=== PATIENT | female | born 1955 | race Caucasian/White ===

== ENCOUNTER → 2017-01-12 | Outpatient (CLI) | payer BC, OTHER | LOC: WI 13:46 | PROVIDERS: ATTEND Nurse Practitioner Family | DX: M81.0 Age-related osteoporosis without current pathological fracture (principal) | CPT/HCPCS: 77080 ==

== ENCOUNTER 2019-01-13 11:13 | Observation (INO) | payer MEDICARE, BC, OTHER ==
--- NOTE | 2019-01-13 13:21 | ER Document Report ---
ED Medical Screen (RME) - General Chief Complaint: Leg Swelling Stated Complaint: LEFT LEG PAIN Time Seen by Provider: 01/13/19 13:19 Primary Care Provider: JAMIE LINDQUIST NP [Primary Care Provider] - Follow up as needed Notes: Patient is a 63-year-old female presents to the emergency department for generalized left calf pain and swelling. Patient states she is noticed the swelling and pain for the last 24 hours. States she went to her primary care provider who referred her to the emergency room for an ultrasound to rule out a blood clot. Patient states she has never had a blood clot before. Patient's denying any chest pain, shortness of breath, abdominal pain. States only has pain in the left calf more so when she dorsiflex her left foot. GENERAL: Alert, interacts well. No acute distress. EXTREMITIES: Moves all 4 extremities spontaneously. normal radial and dorsalis pedis pulses bilaterally. Slight swelling noted to left lower extremity. Patient does have pain upon palpation left calf also with plantar and dorsiflexion of the left foot. NEUROLOGICAL: Alert and oriented x3. Normal speech. SKIN: Warm, dry, normal turgor. No rashes or lesions noted. I have greeted and performed a rapid initial assessment of this patient. A comprehensive ED assessment and evaluation of the patient, analysis of test results and completion of the medical decision making process will be conducted by additional ED providers. TRAVEL OUTSIDE OF THE [place] IN LAST 30 DAYS: No - Related Data Allergies/Adverse Reactions: propoxyphene [From Darvon] Allergy (Verified 01/13/19 11:19) Physical Exam - Vital signs Vitals: Temp Pulse Resp BP Pulse Ox 98.3 F 95 16 133/73 H 98 01/13/19 11:19 01/13/19 11:19 01/13/19 11:19 01/13/19 11:19 01/13/19 11:19 Course - Vital Signs Vital signs: Temp Pulse Resp BP Pulse Ox 98.3 F 95 16 133/73 H 98 01/13/19 11:19 01/13/19 11:19 01/13/19 11:19 01/13/19 11:19 01/13/19 11:19 Doctor's Discharge - Discharge Referrals: JAMIE LINDQUIST NP [Primary Care Provider] - Follow up as needed
--- NOTE | 2019-01-13 15:54 | ER Document Report ---
ED Extremity Problem, Lower - General Chief Complaint: Leg Swelling Stated Complaint: LEFT LEG PAIN Time Seen by Provider: 01/13/19 13:19 Notes: Patient says that she was walking about 4 days ago it started noting a pain in the posterior aspect of her left lower leg, calf region. She felt that it was "red, and hot". All of her symptoms have been going on for 4 days so she went to a local clinic who referred her here to make sure she does not have a blood clot in her leg. She has never had clots previously. Patient says she is noticed some tightness in the front of her chest for the past 24 hours. Denies difficulty breathing. Has not had any fevers. Patient is on multiple medications for mental conditions such as anxiety, depres donya, peripheral neuropathy, sleep disorder. Trigeminal neuralgia. TRAVEL OUTSIDE OF THE [place] IN LAST 30 DAYS: No - Related Data Allergies/Adverse Reactions: propoxyphene [From Darvon] Allergy (Verified 01/13/19 11:19) Past Medical History - Social History Smoking Status: Never Smoker Family History: Reviewed & Not Pertinent Patient has suicidal ideation: No Patient has homicidal ideation: No Pulmonary Medical History: Reports: Hx Asthma Neurological Medical History: Reports: Hx Migraine Endocrine Medical History: Denies: Hx Diabetes Mellitus Type 1, Hx Diabetes Mellitus Type 2 Past Surgical History: Reports: Hx Hysterectomy, Hx Tonsillectomy, Other - Bladder tuck Review of Systems - Review of Systems Notes: REVIEW OF SYSTEMS: CONSTITUTIONAL : Denies fever. EENT: Denies eye, ear, nose or mouth or throat pain or other symptoms. CARDIOVASCULAR: Denies chest pain. Painful swelling of left lower leg. See HPI. RESPIRATORY: Denies cough, chest congestion, or shortness of breath. GASTROINTESTINAL: Denies abdominal pain or nausea, vomiting, or diarrhea. GENITOURINARY: Denies difficulty or painful urinating, urinary frequency, blood in urine. MUSCULOSKELETAL: Denies back or neck pain. Denies joint pain or swelling. SKIN: Denies rash or skin lesions. NEUROLOGICAL: Denies LOC or altered mental status. Denies headache. Denies sensory loss or motor deficits. ALL OTHER SYSTEMS REVIEWED AND NEGATIVE. Physical Exam - Vital signs Vitals: Temp Pulse Resp BP Pulse Ox 98.3 F 95 16 133/73 H 98 01/13/19 11:19 01/13/19 11:19 01/13/19 11:19 01/13/19 11:19 01/13/19 11:19 Interpretation: Normal. No: Hypotensive, Hypertensive, Tachycardic, Hypoxic Notes: PHYSICAL EXAMINATION: GENERAL: Well-appearing, in no acute distress. HEAD: Atraumatic, normocephalic. EYES: Pupils equal round and reactive to light, extraocular movements intact. ENT: oropharynx clear without exudates. Moist mucous membranes. NECK: Normal range of motion, supple. LUNGS: Breath sounds clear and equal bilaterally. HEART: Regular rate and rhythm without murmurs. ABDOMEN: Soft, nontender. No guarding or rebound. No masses. BACK: No tenderness throughout entire back. EXTREMITIES: Left lower leg appears to be slightly more swollen than the right lower leg. There is pain in the posterior left calf when dorsiflexing the foot. Otherwise, normal range of motion without pain of other extremities. NEUROLOGICAL: Normal speech, normal gait. Normal sensory, motor, and reflex exams. Awake, alert, and oriented x3. Cranial nerves normal. PSYCH: Normal mood, normal affect. SKIN: Warm, dry, no rashes. Course - Re-evaluation Re-evalutation: 01/13/19 15:54 Results of venous Doppler discussed with hospitalist in charge today and he wishes that the patient get a CTA and he will evaluate for possible outpatient care. CTA of the chest is negative. - Vital Signs Vital signs: Temp Pulse Resp BP Pulse Ox 98.3 F 95 16 133/73 H 98 01/13/19 11:19 01/13/19 11:19 01/13/19 11:19 01/13/19 11:19 01/13/19 11:19 - Laboratory Result Diagrams: 01/13/19 15:18 01/13/19 15:18 Laboratory results interpreted by me: 01/13/19 15:18 Chloride 108 H Carbon Dioxide 21 L Creatinine 1.32 H Est GFR ( Amer) 49 L Est GFR (Non-Af Amer) 41 L ALT 8 L - Diagnostic Test Radiology reviewed: Image reviewed, Reports reviewed - Patient's venous Doppler showed extensive clot in the left femoral vein and into the left lower leg. CTA of the chest was negative. - EKG Interpretation by Ct EKG shows normal: Sinus rhythm Rate: Normal Rhythm: NSR Additional EKG results interpreted by me: 01/13/19 18:13 EKG shows nonspecific T wave changes in the inferior leads. Discharge - Discharge Clinical Impression: DVT (deep venous thrombosis) Condition: Stable Disposition: ADMITTED OBSERVATION Admitting Provider: Hospitalist Unit Admitted: Telemetry
[2019-01-13 16:13] LABS: ABSOLUTE EOSINOPHILS # (AUTO) 0.2 10^3/uL (0.0-0.6); ABSOLUTE LYMPHOCYTES (AUTO) 1.5 10^3/uL (0.5-4.7); ABSOLUTE MONOCYTES (AUTO) 0.8 10^3/uL (0.1-1.4); ABSOLUTE NEUT (AUTO) 5.4 10^3/uL (1.7-8.2); BASOPHILS % (AUTO) 0.5 % (0-2); EOSINOPHILS % (AUTO) 2.7 % (0-6); HEMOGLOBIN 13.4 g/dL (12.0-15.5); LYMPHOCYTES % (AUTO) 19.3 % (13-45); MEAN CORPUSCULAR HEMOGLOBIN 31.4 pg (27.0-33.4); MEAN CORPUSCULAR HGB CONC 35.1 g/dL (32.0-36.0); MEAN CORPUSCULAR VOLUME 89 fl (80-97); MONOCYTES % (AUTO) 9.5 % (3-13); PLATELET COUNT 259 10^3/uL (150-450); RED BLOOD COUNT 4.25 10^6/uL (3.72-5.28); RED CELL DISTRIBUTION WIDTH 13.4 % (11.5-14.0); TOTAL CELLS COUNTED % (AUTO) 100 %; WHITE BLOOD COUNT 7.9 10^3/uL (4.0-10.5)
[2019-01-13 16:28] LABS: ALANINE AMINOTRANSFERASE 8 U/L (9-52); ALBUMIN 4.3 g/dL (3.5-5.0); ALKALINE PHOSPHATASE 68 U/L (38-126); ANION GAP 12 (5-19); ASPARTATE AMINO TRANSFERASE 17 U/L (14-36); BILIRUBIN,DIRECT 0.3 mg/dL (0.0-0.4); BILIRUBIN,TOTAL 0.5 mg/dL (0.2-1.3); BLOOD UREA NITROGEN 14 mg/dL (7-20); CALCIUM 9.4 mg/dL (8.4-10.2); CARBON DIOXIDE 21 mmol/L (22-30); CHLORIDE 108 mmol/L (98-107); GLUCOSE 94 mg/dL (75-110); POTASSIUM 3.8 mmol/L (3.6-5.0); SODIUM 141.4 mmol/L (137-145)
--- NOTE | 2019-01-13 17:43 | XCELERA REPORT ---
[address] [id number] Lower Extremity Venous Evaluation Procedure: Color flow and duplex imaging of the veins of the left lower extremity as well as the right Common Femoral vein. Right Sided Venous Evaluation The right common femoral vein is fully compressible. Spontaneous and phasic flow is present in the right common femoral vein. Left Sided Venous Evaluation Abnormal vessel filling, enlarged vein, no compression or Colour flow, echo poor from the Common Femoral to the infrageniculate veins. Critical Findings Called in to the ER at about 1500. Interpretation Summary Extensive acute Deep Venous thrombosis in the left lower extremity. Name: DALE SEVILLA Age: 63 yrs Gender: Female : 1955 Patient Status: Emergency Patient Location: ER Study Date: 01/13/2019 02:33 PM Reason For Study: left Ordering Physician: LORETO TRINIDAD Performed By: Juan Mcclure : LORETO TRINIDAD > López Rodriguez
--- NOTE | 2019-01-13 17:55 | RADIOLOGY REPORT (SQ) ---
EXAM DESCRIPTION: CTA CHEST COMPLETED DATE/TIME: 01/13/2019 5:39 pm REASON FOR STUDY: Positive DVT, tightness of chest COMPARISON: 01/31/2012 TECHNIQUE: CT scan of the chest performed using helical scanning technique with dynamic intravenous contrast injection. Images reviewed with lung, soft tissue and bone windows. Reconstructed coronal and sagittal MPR images reviewed. Additional 3 dimensional post-processing performed to develop Maximal Intensity Projection images (MS P). All images stored on PACS. All CT scanners at this facility use dose modulation, iterative reconstruction, and/or weight based d osing when appropriate to reduce radiation dose to as low as reasonably achievable (ALARA). [facility]: Dose Right [facility]: CareDose [facility]: Dose Right [facility]: Teradose 4D [facility]: 7fgame CONTRAST TYPE AND DOSE: contrast/concentration: Isovue 350.00 mg/ml; Total Contrast Delivered: 68.0 ml; Total Saline Delivered: 108.0 ml Contrast bolus optimized for the pulmonary arteries. Not diagnostic for the aorta. RENAL FUNCTION: BUN 14 creatinine 1.32 RADIATION DOSE: CT Rad equipment meets quality standard of care and radiation dose reduction techniq ues were employed. CTDIvol: 5.0 - 44.6 mGy. DLP: 640 mGy-cm. . LIMITATIONS: None. FINDINGS: LUNGS AND PLEURA: No masses, infiltrates, or pneumothorax. No pleural effusions or pleura l calcifications. AORTA AND GREAT VESSELS: No aneurysm. Contrast bolus not optimized for the aorta. HEART: No pericardial effusion. No significant coronary artery calcifications. PULMONARY ARTERIES: No emboli visualized in the main pulmonary arteries or the segmental branches. HILAR AND MEDIASTINAL STRUCTURES: No identified masses or abnormal nodes. HARDWARE: None in the chest. UPPER ABDOMEN: Similar right adrenal adenoma. Limited exam. THYROID AND OTHER SOFT TISSUES: No masses. No adenopathy. BONES: No acute finding. 3D MIPS: Confirm above findings. OTHER: No other significant finding. IMPRESSION: No emboli visualized in the main pulmonary arteries or the segmental branches. COMMENT: Quality ID # [id number]: Final reports with documentation of one or more dose reduction techniques (e.g., Automated exposure control, adjustment of the mA and/or kV according to patient size, use of iterative reconstruction technique) TECHNICAL DOCUMENTATION: JOB ID: [id number] [place]-72 2010 [employer]- All Rights Reserved Reading location - IP/workstation name: [employer]
[2019-01-13] MEDS ORDERED: OXYCODONE-ACETAMINOPHEN 5-325 MG TABLET PO PRN (18:35)
[2019-01-13] MEDS ORDERED: ONDANSETRON HCL INJ/PF 4 MG/2 ML SDV IV PRN (18:35)
--- NOTE | 2019-01-13 18:55 | PDOC H&P ---
History of Present Illness Admission Date/PCP: 01/13/19 18:30 Patient complains of: Left lower leg pain swelling. History of Present Illness: DALE SEVILLA is a 63 year old female with h/o hyperlopedemia,anxiety,depression,lt upper extremity DVT 5 yrs ago,,allergic rhinitis,migraines,peripheral vascular disease,sleep problems came to the ER with complaints of left lower leg swelling pain redness for the last 4-5 days. She had an onset. Denies any injury. Denies any shortness of breath except for chest tightness. Denies any fever denies any cough cold. In the emergency room DVT studies was done found to have extensive left lower leg DVT. CT of the chest was done which was negative for PE. Medical consult was called for admission. Past Medical History Cardiac Medical History: Reports: Hyperlipidema, Peripheral Vascular Disease Pulmonary Medical History: Reports: Asthma Neurological Medical History: Reports: Migraine Endocrine Medical History: Denies: Diabetes Mellitus Type 1, Diabetes Mellitus Type 2 Past Surgical History Past Surgical History: Reports: Hysterectomy, Tonsillectomy, Other - Bladder tuck Social History Smoking Status: Never Smoker Frequency of Alcohol Use: Rare Hx Recreational Drug Use: No Drugs: None - Advance Directive Resuscitation Status: Do Not Resuscitate Family History Family History: Reviewed & Not Pertinent Parental Family History Reviewed: Yes - father prostate cancer/m-esophageal cancer Children Family History Reviewed: Yes Sibling(s) Family History Reviewed.: Yes Medication/Allergy Allergies/Adverse Reactions: propoxyphene [From Darvon] Allergy (Verified 01/13/19 11:19) Review of Systems Constitutional: ABSENT: fever(s), headache(s) Eyes: ABSENT: visual disturbances Cardiovascular: ABSENT: chest pain, dyspnea on exertion, edema, orthropnea, palpitations Gastrointestinal: ABSENT: abdominal pain, constipation, diarrhea, hematemesis, hematochezia, nausea, vomiting Musculoskeletal: ABSENT: joint swelling Neurological: ABSENT: abnormal gait, abnormal speech, confusion, dizziness, focal weakness, syncope Psychiatric: ABSENT: anxiety, depression, homidical ideation, suicidal ideation Hematologic/Lymphatic: ABSENT: easy bleeding, easy bruising Physical Exam Vital Signs: Temp Pulse Resp BP Pulse Ox 98.3 F 95 16 133/73 H 98 01/13/19 11:19 01/13/19 11:19 01/13/19 11:19 01/13/19 11:19 01/13/19 11:19 Intake & Output 01/12/19 01/13/19 01/14/19 06:59 06:59 06:59 Weight 67.2 kg General appearance: PRESENT: no acute distress Head exam: PRESENT: atraumatic Eye exam: PRESENT: PERRLA Teeth exam: PRESENT: poor dentation Neck exam: ABSENT: carotid bruit, JVD, lymphadenopathy, thyromegaly Respiratory exam: PRESENT: decreased breath sounds Cardiovascular exam: PRESENT: tachycardia GI/Abdominal exam: PRESENT: normal bowel sounds, soft. ABSENT: distended, guarding, mass, organolmegaly, rebound, tenderness Neurological exam: PRESENT: alert, awake, oriented to person, oriented to place, oriented to time, oriented to situation, CN II-XII grossly intact. ABSENT: motor sensory deficit Psychiatric exam: PRESENT: appropriate affect, normal mood. ABSENT: homicidal ideation, suicidal ideation Results Laboratory Results: 01/13/19 15:18 01/13/19 15:18 01/13/19 01/13/19 15:18 15:18 WBC 7.9 RBC 4.25 Hgb 13.4 Hct 38.0 MCV 89 MCH 31.4 MCHC 35.1 RDW 13.4 Plt Count 259 Seg Neutrophils % 68.0 Lymphocytes % 19.3 Monocytes % 9.5 Eosinophils % 2.7 Basophils % 0.5 Absolute Neutrophils 5.4 Absolute Lymphocytes 1.5 Absolute Monocytes 0.8 Absolute Eosinophils 0.2 Absolute Basophils 0.0 Sodium 141.4 Potassium 3.8 Chloride 108 H Carbon Dioxide 21 L Anion Gap 12 BUN 14 Creatinine 1.32 H Est GFR ( Amer) 49 L Est GFR (Non-Af Amer) 41 L Glucose 94 Calcium 9.4 Total Bilirubin 0.5 AST 17 ALT 8 L Alkaline Phosphatase 68 Total Protein 7.0 Albumin 4.3 01/13/19 17:50 Troponin I < 0.012 Impressions: Chest/Abdomen CTA 01/13/19 16:03 IMPRESSION: No emboli visualized in the main pulmonary arteries or the segm ental branches. Assessment & Plan - Diagnosis (1) DVT (deep venous thrombosis) Is this a current diagnosis for this admission?: Yes Plan: 01/13/2019-patient came with left lower leg swelling pain found to have a left lower leg DVT. Plan is to put her on telemetry CT of the chest was negative for PE. Plan to start on Xarelto 15 mg p.o. twice daily hematology consult was requested. GI prophylaxis DVT prophylaxis was requested. Patient was placed on observation. (2) Anxiety Is this a current diagnosis for this admission?: Yes Plan: Patient is given the history of anxiety disorder she says she has a long list of medications unfortunately we do not have the medications is not available at this moment. Once we get the medications list and reconciled NUZHAT (3) Sleep disorder Is this a current diagnosis for this admission?: Yes Plan: 01/13/2019-patient given the history of sleep disorder she says she is on Proventil at home we could restart the medication here in the hospital. - Time Time Spent: 50 to 70 Minutes Medications reviewed and adjusted accordingly: Yes Anticipated discharge: Home
[2019-01-13] MEDS: FAMOTIDINE 20 MG TABLET PO SCH (22:00)
[2019-01-14 01:08] LABS: CREATINE KINASE MB < 0.22 ng/mL (<4.55); TROPONIN I < 0.012 ng/mL
[2019-01-14 07:41] LABS: ABSOLUTE BASOPHILS # (AUTO) 0.1 10^3/uL (0.0-0.2); ABSOLUTE EOSINOPHILS # (AUTO) 0.3 10^3/uL (0.0-0.6); ABSOLUTE LYMPHOCYTES (AUTO) 1.5 10^3/uL (0.5-4.7); ABSOLUTE MONOCYTES (AUTO) 0.7 10^3/uL (0.1-1.4); ABSOLUTE NEUT (AUTO) 4.1 10^3/uL (1.7-8.2); BASOPHILS % (AUTO) 0.8 % (0-2); EOSINOPHILS % (AUTO) 4.1 % (0-6); HEMATOCRIT 35.2 % (36.0-47.0); HEMOGLOBIN 12.3 g/dL (12.0-15.5); LYMPHOCYTES % (AUTO) 22.2 % (13-45); MEAN CORPUSCULAR HEMOGLOBIN 30.6 pg (27.0-33.4); MEAN CORPUSCULAR VOLUME 87 fl (80-97); MONOCYTES % (AUTO) 10.3 % (3-13); PLATELET COUNT 263 10^3/uL (150-450); RED BLOOD COUNT 4.03 10^6/uL (3.72-5.28); RED CELL DISTRIBUTION WIDTH 13.2 % (11.5-14.0); SEGMENTED NEUTROPHILS % (AUTO) 62.6 % (42-78); TOTAL CELLS COUNTED % (AUTO) 100 %; WHITE BLOOD COUNT 6.6 10^3/uL (4.0-10.5)
[2019-01-14 07:47] LABS: INTERNATIONAL RATION (INR) 1.01; PROTHROMBIN TIME 13.8 SEC (11.4-15.4)
[2019-01-14] MEDS ORDERED: RIVAROXABAN 15 MG TABLET PO SCH (08:00)
[2019-01-14 08:13] LABS: ALANINE AMINOTRANSFERASE 18 U/L (9-52); ALBUMIN 3.5 g/dL (3.5-5.0); ALKALINE PHOSPHATASE 61 U/L (38-126); ANION GAP 8 (5-19); ASPARTATE AMINO TRANSFERASE 14 U/L (14-36); BILIRUBIN,DIRECT 0.2 mg/dL (0.0-0.4); BILIRUBIN,TOTAL 0.3 mg/dL (0.2-1.3); BLOOD UREA NITROGEN 16 mg/dL (7-20); CALCIUM 9.1 mg/dL (8.4-10.2); CARBON DIOXIDE 21 mmol/L (22-30); CHLORIDE 113 mmol/L (98-107); GLUCOSE 101 mg/dL (75-110); POTASSIUM 4.2 mmol/L (3.6-5.0); SODIUM 141.8 mmol/L (137-145)
--- NOTE | 2019-01-14 08:16 | PDOC CONSULTATION ---
Consultation Consult Date: 01/14/19 Attending physician:: RENNY HUGHES Consult reason:: Left lower extremity DVT History of Present Illness Admission Date/PCP: 01/13/19 18:30 Patient complains of: Left lower extremity pain and swelling History of Present Illness: DALE SEVILLA is a 63 year old female who presents with a one-week history of left lower extremity pain and swelling. She had an ultrasound which indicated a left lower extremity DVT. Of note she had history of a left upper extremity DVT in the past that was associated with an IV. She does not remember being treated at that time with anticoagulation. It may have been a superficial thrombosis. Of note she does have chronic swelling issues with the left lower extremity, presumably because of venous insufficiency she does have varicosities on the left side. Past Medical History Cardiac Medical History: Reports: Hyperlipidema, Peripheral Vascular Disease Denies: Congestive Heart Failure, Myocardial Infarction, Hypertension Pulmonary Medical History: Reports: Asthma Denies: Bronchitis, Chronic Obstructive Pulmonary Disease (COPD), Pneumonia, Tuberculosis Neurological Medical History: Reports: Migraine Denies: Seizures Endocrine Medical History: Denies: Diabetes Mellitus Type 1, Diabetes Mellitus Type 2 Renal/ Medical History: Denies: End Stage Renal Disease GI Medical History: Reports: Gastroesophageal Reflux Disease Denies: Cirrhosis Musculoskeltal Medical History: Reports: Arthritis Psychiatric Medical History: Reports: Depression Denies: Bipolar Disorder Hematology: Reports: Anemia, Other - Upper extremity DVT versus SVT Denies: Bleeding Tendencies Past Surgical History Past Surgical History: Reports: Hysterectomy, Tonsillectomy, Other - Bladder tuck Social History Information Source: Patient Smoking Status: Never Smoker Frequency of Alcohol Use: Rare Hx Recreational Drug Use: No Drugs: None - Advance Directive Resuscitation Status: Full Code Family History Family History: Reviewed & Not Pertinent Parental Family History Reviewed: Yes Children Family History Reviewed: Yes Sibling(s) Family History Reviewed.: Yes Medication/Allergy Home Medications: Albuterol Sulfate [Proair Hfa Inhalation Aerosol 8.5 gm Mdi] 1 puff IH Q6HP PRN 01/13/19 Atorvastatin Calcium [Lipitor 10 mg Tablet] 10 mg PO QHS 01/13/19 Bupropion HCl [Bupropion HCl Sr] 200 mg PO DAILY 01/13/19 Buspirone HCl [Buspar 10 mg Tablet] 20 mg PO Q8 01/13/19 Butalb/Acetaminophen/Caffeine [Onthdcfo-Lzcaodcjwzpot-Uhfe Cp] 1 cap PO Q4HP PRN 01/13/19 Cholecalciferol (Vitamin D3) [Vitamin D3 1000 Unit Tablet] 1,000 unit PO DAILY 01/13/19 Clonazepam 0.25 mg PO BIDP PRN 01/13/19 Clonazepam 0.5 mg PO QHS MDD MAX 1MG AT BEDTIME 01/13/19 Cyclosporine 0.05% Oph Emulsio [Restasis 0.05% Opthalmic Droperette] 1 drop OU BID 01/13/19 Diclofenac Sodium [Voltaren] 1 applic TP QID 01/13/19 Fluoxetine HCl [Prozac] 40 mg PO DAILY 01/13/19 Ipratropium [place] [Atrovent 0.06% Nasal [place]] 2 spray NASL TID 01/13/19 Loratadine [Claritin 10 mg Tablet] 10 mg PO DAILY 01/13/19 Modafinil 200 mg PO Q12 MDD FILLED 10-04-18 FOR 30 DAYS 01/13/19 Montelukast Sodium [Singulair 10 mg Tablet] 10 mg PO QHS 01/13/19 Pregabalin [Lyrica] 150 mg PO Q12 01/13/19 Topiramate [Topamax] 200 mg PO Q12 01/13/19 Allergies/Adverse Reactions: propoxyphene [From Darvon] Allergy (Verified 01/13/19 11:19) Review of Systems Constitutional: ABSENT: chills, fever(s), headache(s), weight gain, weight loss Eyes: ABSENT: visual disturbances Ears: ABSENT: hearing changes Cardiovascular: ABSENT: chest pain, dyspnea on exertion, edema, orthropnea, palpitations Respiratory: ABSENT: cough, hemoptysis Gastrointestinal: ABSENT: abdominal pain, constipation, diarrhea, hematemesis, hematochezia, nausea, vomiting Genitourinary: ABSENT: dysuria, hematuria Musculoskeletal: ABSENT: joint swelling Integumentary: ABSENT: rash, wounds Neurological: ABSENT: abnormal gait, abnormal speech, confusion, dizziness, focal weakness, syncope Psychiatric: ABSENT: anxiety, depression, homidical ideation, suicidal ideation Endocrine: ABSENT: cold intolerance, heat intolerance, polydipsia, polyuria Hematologic/Lymphatic: ABSENT: easy bleeding, easy bruising Physical Exam Vital Signs: Temp Pulse Resp BP Pulse Ox 98.1 F 74 16 113/64 95 01/14/19 00:37 01/14/19 07:00 01/14/19 00:37 01/14/19 00:37 01/14/19 00:37 Intake & Output 01/13/19 01/14/19 01/15/19 06:59 06:59 06:59 Intake Total 520 Balance 520 Weight 69.3 kg General appearance: PRESENT: no acute distress, well-developed, well-nourished Head exam: PRESENT: atraumatic, normocephalic Eye exam: PRESENT: conjunctiva pink, EOMI, PERRLA. ABSENT: scleral icterus Ear exam: PRESENT: normal external ear exam Mouth exam: PRESENT: moist, tongue midline Neck exam: ABSENT: carotid bruit, JVD, lymphadenopathy, thyromegaly Respiratory exam: PRESENT: clear to auscultation eze. ABSENT: rales, rhonchi, wheezes Cardiovascular exam: PRESENT: RRR. ABSENT: diastolic murmur, rubs, systolic murmur Pulses: PRESENT: normal dorsalis pedis pul Vascular exam: PRESENT: normal capillary refill GI/Abdominal exam: PRESENT: normal bowel sounds, soft. ABSENT: distended, guarding, mass, organolmegaly, rebound, tenderness Rectal exam: PRESENT: deferred Extremities exam: PRESENT: full ROM. ABSENT: calf tenderness, clubbing, pedal edema Neurological exam: PRESENT: alert, awake, oriented to person, oriented to place, oriented to time, oriented to situation, CN II-XII grossly intact. ABSENT: motor sensory deficit Psychiatric exam: PRESENT: appropriate affect, normal mood. ABSENT: homicidal ideation, suicidal ideation Skin exam: PRESENT: dry, intact, warm. ABSENT: cyanosis, rash Results Laboratory Results: 01/14/19 06:30 01/13/19 01/13/19 01/14/19 15:18 15:18 06:30 WBC 7.9 6.6 RBC 4.25 4.03 Hgb 13.4 12.3 Hct 38.0 35.2 L MCV 89 87 MCH 31.4 30.6 MCHC 35.1 35.0 RDW 13.4 13.2 Plt Count 259 263 Seg Neutrophils % 68.0 62.6 Lymphocytes % 19.3 22.2 Monocytes % 9.5 10.3 Eosinophils % 2.7 4.1 Basophils % 0.5 0.8 Absolute Neutrophils 5.4 4.1 Absolute Lymphocytes 1.5 1.5 Absolute Monocytes 0.8 0.7 Absolute Eosinophils 0.2 0.3 Absolute Basophils 0.0 0.1 Sodium 141.4 Potassium 3.8 Chloride 108 H Carbon Dioxide 21 L Anion Gap 12 BUN 14 Creatinine 1.32 H Est GFR ( Amer) 49 L Est GFR (Non-Af Amer) 41 L Glucose 94 Calcium 9.4 Total Bilirubin 0.5 AST 17 ALT 8 L Alkaline Phosphatase 68 Total Protein 7.0 Albumin 4.3 01/13/19 01/14/19 17:50 00:16 CK-MB (CK-2) < 0.22 Troponin I < 0.012 < 0.012 Impressions: Chest/Abdomen CTA 01/13/19 16:03 IMPRESSION: No emboli visualized in the main pulmonary arteries or the se gmental branches. Assessment & Plan - Diagnosis (1) DVT (deep venous thrombosis) Qualifiers: DVT location: lower extremity Affected thrombotic vein of extremity: femoral Laterality: left Is this a current diagnosis for this admission?: Yes Plan: Left lower extremity DVT, this is a recurrent thrombotic event. She may have only had a superficial venous thrombosis before but I believe this should quali fy her for lifelong anticoagulation. She understands that. Agree with Xarelto 15 mg twice daily, she would do that for 21 days with transition to 20 mg daily. She can follow with us in the office post discharge. Would not recommend any further hypercoagulable workup at this point because she does not seem to have strong family history of this. And herself, she already qualifies for lifelong anticoagulation so doing further lab workup would not change this recommendation. - Time Time Spent: Greater than 70 Minutes - Inpatient Certification Based on my medical assessment, after consideration of the patient's comorbidities, presenting symptoms, or acuity I expect that the services needed warrant INPATIENT care.: Yes I certify that my determination is in accordance with my understanding of [facility] 's requirements for reasonable and necessary INPATIENT services [42 CFR 412.3e].: Yes Medical Necessity: Risk of Complication if Not Cared For in Hospital
[2019-01-14 08:27] LABS: CREATINE KINASE MB < 0.22 ng/mL (<4.55); TROPONIN I < 0.012 ng/mL
[2019-01-14] MEDS ORDERED: MODAFINIL 100 MG TABLET PO SCH (10:00)
[2019-01-14] MEDS ORDERED: DOCUSATE SODIUM 100 MG CAPSULE PO SCH (10:00)
[2019-01-14] MEDS: FAMOTIDINE 20 MG TABLET PO SCH (10:03)
[2019-01-14] MEDS ORDERED: (PENDING PHARMACY ID) (Clonazepam [Clonazepam] 0.25 MG) PO PRN (10:27)
[2019-01-14] MEDS ORDERED: [UNRECOGNIZED DRUG - OTHER] PO PRN (10:27)
[2019-01-14] MEDS ORDERED: ACETAMINOPHEN PO PRN (10:27)
[2019-01-14] MEDS ORDERED: BUTALB PO PRN (10:27)
[2019-01-14] MEDS ORDERED: BUTALB/ACETAMINOPHEN/CAFFEINE 1 TAB EACH PO PRN (11:22)
[2019-01-14] MEDS ORDERED: LORATADINE 10 MG TABLET PO SCH (11:30)
[2019-01-14] MEDS ORDERED: CHOLECALCIFEROL (D3) 1,000 UNIT TABLET PO SCH (11:30)
[2019-01-14 12:53] VITALS: BP 103/54
[2019-01-14 13:17] LABS: CREATINE KINASE MB < 0.22 ng/mL (<4.55); TROPONIN I < 0.012 ng/mL
[2019-01-14] MEDS ORDERED: TOPIRAMATE 100 MG TABLET PO SCH (13:30)
[2019-01-14] MEDS ORDERED: IPRATROPIUM BROMIDE 0.06% NASAL SPRAY 15 ML NASL SCH (14:00)
[2019-01-14] MEDS ORDERED: FLUOXETINE HCL 20 MG CAPSULE PO SCH (14:00)
[2019-01-14] MEDS ORDERED: BUSPIRONE HCL 10 MG TABLET PO SCH (14:00)
--- NOTE | 2019-01-14 14:43 | PDOC DISCHARGE SUMMARY ---
General - Admit/Disc Date/PCP Admission Date/Primary Care Provider: 01/13/19 18:30 Discharge Date: 01/14/19 - Discharge Diagnosis (1) DVT (deep venous thrombosis) Is this a current diagnosis for this admission?: Yes Summary: 01/13/2019-patient came with left lower leg swelling pain found to have a left lower leg DVT. Plan is to put her on telemetry CT of the chest was negative for PE. Plan to start on Xarelto 15 mg p.o. twice daily hematology consult was requested. GI prophylaxis DVT prophylaxis was requested. Patient was placed on observation. 2018-patient is admitted with left lower extremity swelling and pain found to have DVT left lower extremity. Started on Xarelto 15 mg p.o. twice daily consultation with Dr. Armas was done his recommendation to discharge patient on Xarelto 15 mg p.o. twice daily with follow up in the clinic in 1 week time. (2) Anxiety Is this a current diagnosis for this admission?: Yes Summary: Patient is given the history of anxiety disorder she says she has a long list of medications unfortunately we do not have the medications is not available at this moment. Once we get the medications list and reconciled NUZHAT 01/14/2019-patient history of anxiety disorder she is on multiple medications at home those medications are resumed during the hospital stay. Advised her to continue the medications when she is discharged. (3) Sleep disorder Is this a current diagnosis for this admission?: Yes Summary: 01/13/2019-patient given the history of sleep disorder she says she is on Proventil at home we could restart the medication here in the hospital. - Additional Information Resuscitation Status: Full Code Discharge Activity: Activity As Tolerated Prescriptions: Rivaroxaban [Xarelto 15 mg Tablet] 15 mg PO BIDBS #60 tablet Home Medications: Albuterol Sulfate [Proair HFA Inhalation Aerosol 8.5 gm MDI] 1 puff IH Q6HP PRN 01/13/19 Atorvastatin Calcium [Lipitor 10 mg Tablet] 10 mg PO QHS 01/13/19 Bupropion HCl [Bupropion HCl Sr] 200 mg PO DAILY 01/13/19 Buspirone HCl [Buspar 10 mg Tablet] 20 mg PO Q8 01/13/19 Butalb/Acetaminophen/Caffeine [Zfwnwlqb-Kxfntpcjskxsn-Luua Cp] 1 cap PO Q4HP PRN 01/13/19 Cholecalciferol (Vitamin D3) [Vitamin D3 1000 Unit Tablet] 1,000 unit PO DAILY 01/13/19 Clonazepam 0.25 mg PO BIDP PRN 01/13/19 Clonazepam 0.5 mg PO QHS MDD MAX 1MG AT BEDTIME 01/13/19 Cyclosporine 0.05% Oph Emulsio [Restasis 0.05% Oph Emulsion Pf 0.4 ml] 1 drop OU BID 01/13/19 Fluoxetine HCl [Prozac] 40 mg PO DAILY 01/13/19 Ipratropium [place] [Atrovent 0.06% Nasal [place]] 2 spray NASL TID 01/13/19 Loratadine [Claritin 10 mg Tablet] 10 mg PO DAILY 01/13/19 Modafinil 200 mg PO Q12 MDD FILLED 10-04-18 FOR 30 DAYS 01/13/19 Montelukast Sodium [Singulair 10 mg Tablet] 10 mg PO QHS 01/13/19 Pregabalin [Lyrica] 150 mg PO Q12 01/13/19 Topiramate [Topamax] 200 mg PO Q12 01/13/19 Cyclosporine 0.05% Oph Emulsio [Restasis 0.05% Oph Emulsion Pf 0.4 ml] 1 drop OU BID droperette 01/14/19 Docusate Sodium [Colace 100 mg Capsule] 100 mg PO BID capsule 01/14/19 Famotidine [Pepcid 20 mg Tablet] 20 mg PO Q12 tablet 01/14/19 Modafinil [Provigil 100 mg Tablet] 100 mg PO DAILY tablet 01/14/19 Rivaroxaban [Xarelto 15 mg Tablet] 15 mg PO BIDBS #60 tablet 01/14/19 History of Present Illness History of Present Illness: DALE SEVILLA is a 63 year old female with h/o hyperlopedemia,anxiety,depression,lt upper extremity DVT 5 yrs ago,,allergic rhinitis,migraines,peripheral vascular disease,sleep problems came to the ER with complaints of left lower leg swelling pain redness for the last 4-5 days. She had an onset. Denies any injury. Denies any shortness of breath except for chest tightness. Denies any fever denies any cough cold. In the emergency room DVT studies was done found to have extensive left lower leg DVT. CT of the chest was done which was negative for PE. Medical consult was called for admission. Physical Exam Vital Signs: Temp Pulse Resp BP Pulse Ox 98.4 F 74 14 103/54 L 100 01/14/19 12:00 01/14/19 12:00 01/14/19 12:00 01/14/19 12:00 01/14/19 12:00 Intake & Output 01/13/19 01/14/19 01/15/19 06:59 06:59 06:59 Intake Total 520 354 Balance 520 354 Weight 69.3 kg General appearance: PRESENT: no acute distress Head exam: PRESENT: atraumatic Eye exam: PRESENT: PERRLA Neck exam: ABSENT: carotid bruit, JVD, lymphadenopathy, thyromegaly Respiratory exam: PRESENT: clear to auscultation zee. ABSENT: rales, rhonchi, wheezes Cardiovascular exam: PRESENT: RRR. ABSENT: diastolic murmur, rubs, systolic murmur GI/Abdominal exam: PRESENT: normal bowel sounds, soft. ABSENT: distended, guarding, mass, organolmegaly, rebound, tenderness Extremities exam: PRESENT: full ROM. ABSENT: calf tenderness, clubbing, pedal edema Neurological exam: PRESENT: alert, awake, oriented to person, oriented to place, oriented to time, oriented to situation, CN II-XII grossly intact. ABSENT: motor sensory deficit Psychiatric exam: PRESENT: appropriate affect, normal mood. ABSENT: homicidal ideation, suicidal ideation Results Laboratory Results: 01/14/19 06:30 01/14/19 06:30 01/13/19 01/13/19 01/14/19 15:18 15:18 06:30 WBC 7.9 6.6 RBC 4.25 4.03 Hgb 13.4 12.3 Hct 38.0 35.2 L MCV 89 87 MCH 31.4 30.6 MCHC 35.1 35.0 RDW 13.4 13.2 Plt Count 259 263 Seg Neutrophils % 68.0 62.6 Lymphocytes % 19.3 22.2 Monocytes % 9.5 10.3 Eosinophils % 2.7 4.1 Basophils % 0.5 0.8 Absolute Neutrophils 5.4 4.1 Absolute Lymphocytes 1.5 1.5 Absolute Monocytes 0.8 0.7 Absolute Eosinophils 0.2 0.3 Absolute Basophils 0.0 0.1 Sodium 141.4 Potassium 3.8 Chloride 108 H Carbon Dioxide 21 L Anion Gap 12 BUN 14 Creatinine 1.32 H Est GFR ( Amer) 49 L Est GFR (Non-Af Amer) 41 L Glucose 94 Calcium 9.4 Magnesium Total Bilirubin 0.5 AST 17 ALT 8 L Alkaline Phosphatase 68 Total Protein 7.0 Albumin 4.3 TSH 01/14/19 01/14/19 06:30 06:30 WBC RBC Hgb Hct MCV MCH MCHC RDW Plt Count Seg Neutrophils % Lymphocytes % Monocytes % Eosinophils % Basophils % Absolute Neutrophils Absolute Lymphocytes Absolute Monocytes Absolute Eosinophils Absolute Basophils Sodium 141.8 Potassium 4.2 Chloride 113 H Carbon Dioxide 21 L Anion Gap 8 BUN 16 Creatinine 0.86 Est GFR ( Amer) > 60 Est GFR (Non-Af Amer) > 60 Glucose 101 Calcium 9.1 Magnesium 2.2 Total Bilirubin 0.3 AST 14 ALT 18 Alkaline Phosphatase 61 Total Protein 6.0 L Albumin 3.5 TSH 1.15 01/13/19 01/14/19 01/14/19 17:50 00:16 06:30 CK-MB (CK-2) < 0.22 < 0.22 Troponin I < 0.012 < 0.012 < 0.012 01/14/19 12:27 CK-MB (CK-2) < 0.22 Troponin I < 0.012 Impressions: Chest/Abdomen CTA 01/13/19 16:03 IMPRESSION: No emboli visualized in the main pulmonary arteries or the segmental branches. Qualifiers - * PATIENT BEING DISCHARGED WITH ANY OF THE FOLLOWING DIAGNOSIS: No VTE patient discharged on overlapping Therapy?: No
[2019-01-14] MEDS ORDERED: CYCLOSPORINE 0.05% OPH EMULSIO 0.4 ML DROPERETTE OU SCH (18:00)
[2019-01-14] MEDS ORDERED: ATORVASTATIN CALCIUM 10 MG TABLET PO SCH (22:00)
[2019-01-14] MEDS ORDERED: MONTELUKAST SODIUM 10 MG TABLET PO SCH (22:00)
[2019-01-14] MEDS ORDERED: CLONAZEPAM 1 MG TABLET PO SCH (22:00)
[2019-01-14] MEDS ORDERED: (PENDING PHARMACY ID) (Topiramate [Topamax] 200 MG) PO SCH (22:00)
[2019-01-14] MEDS ORDERED: MODAFINIL 200 MG PO SCH (22:00)
[2019-01-14] MEDS ORDERED: BUPROPION HCL 100 MG TABLET PO SCH (22:00)
[2019-01-14] MEDS ORDERED: (PENDING PHARMACY ID) (Clonazepam [Clonazepam] 0.5 MG) PO SCH (22:00)
[2019-01-14] MEDS ORDERED: PREGABALIN 75 MG CAPSULE PO SCH (22:00)
[2019-01-15] MEDS ORDERED: MODAFINIL 100 MG TABLET PO SCH (06:00)
--- NOTE | 2019-01-15 09:29 | EKG REPORT ---
SEVERITY:- ABNORMAL ECG - SINUS RHYTHM NONSPECIFIC T ABNORMALITIES, INFERIOR LEADS : Confirmed by: Teressa Negron 15-Jan-2019 09:29:21
--- NOTE | 2019-01-15 09:29 | EKG REPORT ---
SEVERITY:- ABNORMAL ECG - SINUS RHYTHM NONSPECIFIC T ABNORMALITIES, INFERIOR LEADS : Confirmed by: Teressa Negron 15-Jan-2019 09:29:25
[2019-01-15] MEDS ORDERED: (PENDING PHARMACY ID) (Bupropion Hcl [Bupropion Hcl Sr] 200 MG) PO SCH (10:00)
== END 2019-01-14 16:35 | disposition home or self-care (01) ==
LOC: ER 11:13 → EH 18:30 → 5 20:14
PROVIDERS: ADMIT Internal Medicine; ATTEND Internal Medicine
DX: I82.412 Acute embolism and thrombosis of left femoral vein (principal); F41.9 Anxiety disorder, unspecified; G47.9 Sleep disorder, unspecified; F32.9 Major depressive disorder, single episode, unspecified; G62.9 Polyneuropathy, unspecified; G50.0 Trigeminal neuralgia; E78.5 Hyperlipidemia, unspecified; R00.0 Tachycardia, unspecified; Z79.899 Other long term (current) drug therapy; Z86.718 Personal history of other venous thrombosis and embolism; Z66 Do not resuscitate
CPT/HCPCS: 93005 ×2; 99285; 36415 ×2; 82553; 83735; 84443; 85025 ×2; 85610; 80053 ×2; 84484 ×2; 93971 ×2; 71275; 93010; A9270 ×8; J3490